=== PATIENT | male | born 1950 | race Caucasian/White ===

== ENCOUNTER 2019-05-07 15:30 | Emergency (ER) | payer MEDICARE, OTHER ==
[~2019-05-07] VITALS: Ht 180.3 cm; Wt 81.2 kg
[2019-05-07 15:36] VITALS: BP 147/73
--- NOTE | 2019-05-07 17:04 | Diagnostic Imaging Report ---
Indication: Headache Technique: Contiguous 5 mm thick transaxial imaging of the head obtained in a Siemens Sensation [address] scanner. Soft tissue and bone windows generated. Automatic Exposure Control was utilized. Total Dose length Product (DLP): 1098.9mGycm CT Dose Index Volume (CTDIvol): 53.4 mGy Comparison: none Findings: There is moderate prominence of the ventricles, basal cisterns, and cerebral sulci consistent with atrophy. Moderate, nonspecific, white matter hypoattenuation is noted throughout the brain consistent with chronic small vessel disease. There is no midline shift, edema, acute hemorrhage, mass effect, or abnormal extra-axial fluid collections. Bones are unremarkable. Impression: No acute intracranial bleed, mass effect or edema. Moderate atrophy of the brain. Evidence of chronic small vessel disease involving white matter tracts. The CT scanner at [facility] is accredited by the [employer] and the scans are performed using dose optimization techniques as appropriate to a performed exam including Automatic Exposure control.
--- NOTE | 2019-05-07 17:28 | Emergency Room Report ---
History of Present Illness General Chief Complaint: Head Injury Source: Patient Present Illness HPI 69-year-old male with history of hypertension and HIV currently controlled here complaining of headache and dizziness as well as a abrasion lip back of his head after falling last night and hitting his head to the table. Patient reports that he was drinking alcohol. Denies any loss of consciousness. Denies any blurry vision nausea vomiting at this time. Reports that he had a cerebral hematoma back in 2011. Patient is not currently taking any blood thinners. Denies all other injuries. Neurovascularly intact. Up-to-date with tetanus shot. Has a normal steady gait. Allergies: Coded Allergies: CODEINE (Verified Allergy, Unknown, 05/07/19) Patient History Past Medical History: see triage record Past Surgical History: none Pertinent Family History: none Immunizations: UTD Reviewed Nursing Documentation: PMH: Agreed; PSxH: Agreed Nursing Documentation-PMH Past Medical History: No History, Except For Hx Cardiac Problems: No - HIV Hx Hypertension: Yes Review of Systems All Other Systems: negative except mentioned in HPI Physical Exam Vital Signs Date Time Temp Pulse Resp B/P (MAP) Pulse Ox O2 Delivery O2 Flow Rate FiO2 05/07/19 15:36 98.8 77 17 147/73 (97) 98 Room Air Sp02 EP Interpretation: reviewed, normal General Appearance: no apparent distress, alert, GCS 15, non-toxic Head: normocephalic, other - Head contusion noted on occipital region with a small abrasion Eyes: bilateral eye normal inspection, bilateral eye PERRL ENT: hearing grossly normal, normal pharynx, no angioedema, normal voice Neck: full range of motion, supple, thyroid normal, no meningismus, supple/symm /no masses Respiratory: chest non-tender, lungs clear, normal breath sounds, no rhonchi, no retraction, speaking full sentences Cardiovascular #1: regular rate, rhythm, no edema, no murmur, normal capillary refill Cardiovascular #2: 2+ carotid (R), 2+ carotid (L) Gastrointestinal: normal bowel sounds, non tender, soft, non-distended, no guarding, no rebound Rectal: deferred Musculoskeletal: back normal, digits/nails normal Neurologic: alert, motor strength/tone normal, oriented x3, sensory intact, responsive, speech normal Psychiatric: judgement/insight normal, memory normal, mood/affect normal, no suicidal/homicidal ideation Skin: no rash, abrasion - Posterior head Lymphatic: no adenopathy Medical Decision Making PA Attestation All my diagnosis and treatment plans were reviewed ad discussed with my supervising physician Dr. Sim Diagnostic Impression: Primary Impression: Head contusion Additional Impression: Scalp abrasion ER Course 69-year-old male with history of hypertension and HIV currently controlled here complaining of headache and dizziness as well as a abrasion lip back of his head after falling last night and hitting his head to the table. Patient reports that he was drinking alcohol. Denies any loss of consciousness. Denies any blurry vision nausea vomiting at this time. Reports that he had a cerebral hematoma back in 2011. Patient is not currently taking any blood thinners. Denies all other injuries. Neurovascularly intact. Up-to-date with tetanus shot. Has a normal steady gait. Ddx considered but are not limited to: cerebral hematoma, concussion, skull fracture, head contusion Vital signs: are WNL, pt. is afebrile H&PE are most consistent with: Head contusion, abrasion of head ORDERS: head CT no contrast, Tylenol, ED INTERVENTIONS: None required at this time. DISCHARGE: At this time pt. is stable for d/c to home. Will provide printed patient care instructions, and any necessary prescriptions. Care plan and follow up instructions have been discussed with the patient prior to discharge. Take medication as directed, follow-up primary care provider, avoid drinking alcohol, if worsening symptoms return to the emergency room CT/MRI/US Diagnostic Results CT/MRI/US Diagnostic Results : Imaging Test Ordered: Head CT no contrast Impression No intracranial bleed, no skull fracture Last Vital Signs Date Time Temp Pulse Resp B/P (MAP) Pulse Ox O2 Delivery O2 Flow Rate FiO2 05/07/19 15:36 98.8 77 17 147/73 98 Room Air Disposition: HOME, SELF-CARE Condition: Stable Scripts Acetaminophen* (TYLENOL EXTRA STRENGTH*) 500 Mg Tablet 500 MG ORAL Q8H PRN for Prn Headache/Temp > 101, #30 TAB 0 Refills Prov: Ayla Nance 05/07/19 Patient Instructions: Facial or Scalp Contusion, [id number], Laceration Care , Adult Additional Instructions: Take medication as directed follow-up with primary care provider, increase oral hydration, if worsening symptoms return to the emergency room Ayla Nance May 07, 2019 17:28
[2019-05-07] MEDS ORDERED: TYLENOL EXTRA500 MG ORAL (17:29)
[2019-05-07 17:36] VITALS: BP 147/73
== END 2019-05-07 17:36 | disposition home or self-care (01) ==
LOC: EMR 17:36
DX: S00.03XA Contusion of scalp, initial encounter (principal); S00.01XA Abrasion of scalp, initial encounter; W19.XXXA Unspecified fall, initial encounter; Y92.9 Unspecified place or not applicable; G31.9 Degenerative disease of nervous system, unspecified; Z88.5 Allergy status to narcotic agent
CPT/HCPCS: 70450; 99284